=== PATIENT | male | born 1940 | race Caucasian/White ===

== ENCOUNTER 2022-12-01 10:56 | Emergency (ER) | payer MEDICARE, SELFPAY ==
[2022-12-01 11:00] VITALS: BP 155/87; PULSE 87; TEMP 36.9; O2SAT 94; BMI 27.0
[2022-12-01] MEDS: sodium chloride 0.9% 1,000 ML 999 ML IV (11:15)
[2022-12-01] MEDS: ondansetron 2 mg/ML SDV 2 mL 4 MG IVP (11:16)
--- NOTE | 2022-12-01 11:29 | CT_ITS ---
WS: [id number] CT ABDOMEN PELVIS TECHNIQUE: Noncontrast CT of the abdomen and pelvis with coronal and sagittal reformatted images. CLINICAL INFORMATION: Abdominal pain COMPARISON: None. DLP: 551.[address] scans at [facility] use at least one of these dose optimization techniques: automated e xposure control; mA and/or kV adjustment per patient size (includes targeted exams where dose is matc hed to clinical indication); or iterative reconstruction. FINDINGS: Comminuted fracture involving the L1 vertebral body with mild retropulsion of the posterior cortex re sults mild central canal stenosis with effacement of the ventral thecal sac. Diffuse mottled sclerosi s throughout the L1 vertebral body and posterior elements nonspecific but suspicious for pathologic f racture. This is age indeterminant but only a small amount of surrounding edema. Bony structures coul d be further evaluated with bone scan to assess for metastatic disease. 40% loss of vertebral body he ight. Midline fracture cleft with comminution of the superior and inferior endplates. Lung bases are well aerated. Noncontrast liver appears normal. Normal noncontrast spleen. Small peric ardial effusion. Normal GE junction. Noncontrast pancreas appears normal. Adrenal glands are normal. No hydronephrosis in either kidney. A few peripelvic LEFT renal cysts. No significant perinephric flu id or edema. Nonobstructing RIGHT renal calyceal tip calculus. A few sigmoid diverticuli. No evidence of acute diverticulitis. Normal appendix in the RIGHT lower qu adrant. Tiny fat-containing umbilical hernia. Enlarged prostate measuring 4.2 cm with calcifications. No diffuse bladder wall thickening. Recommend correlation PSA. IMPRESSION: 1. Comminuted burst type fracture involving the L1 vertebral body with transverse fracture cleft. L oss of approximately 40% vertebral body height with mild retropulsion and mild central canal stenosis . Abnormal sclerotic bone trabeculation suspicious for pathologic fracture. Bony structures can be fu rther evaluated with bone scan to assess for metastatic disease. Fracture is age-indeterminate 2. No hydronephrosis in either kidney. Nonobstructing RIGHT calyceal tip calculus. 3. Mild prostate enlargement with calcification. Correlation PSA. Evidence of mild bladder outlet ob struction 4. Sigmoid diverticulosis. No evidence of acute diverticulitis. 5. Small pericardial effusion.
[2022-12-01 11:36] LABS: Basophils % 0.8 %; Hematocrit 42.8 % (37-53); Lymphocytes # 0.8 10^3/uL (0.8-4.8); Lymphocytes % 32.3 %; Mean Corpuscular HGB Conc 34.6 g/dL (30-55); Mean Corpuscular Hemoglobin 31.4 pg (27-33); Mean Corpuscular Volume 90.7 fl (82-101); Mean Platelet Volume 11.8 fL (7.4-10.4); Monocytes # 0.2 10^3/uL (0.2-0.9); Monocytes % 8.7 %; Neutrophils # 1.44 10^3/uL (1.8-7.7); Neutrophils % 56.6 %; Nucleated Red Blood Cells % 0 %; Platelet Count 36 10^3/cmm (157-399); Red Blood Count 4.72 10^6/uL (3.85-5.65); Red Cell Distribution Width 13.6 % (12.1-15.1); White Blood Count 2.54 10^3/uL (3.29-11.43)
[2022-12-01 11:41] VITALS: BP 155/87; PULSE 75; RESP 16; O2SAT 93
--- NOTE | 2022-12-01 11:55 | ED_ITS ---
HPI - Weakness General: Chief complaint: Weakness Stated complaint: uti, fever Time Seen by Provider: 12/01/22 11:04 Source: patient Mode of arrival: EMS History of Present Illness: 22-year-old male presents emergency room after a fall at home he is some bruising over his left flank. Is been increasingly weak falling often he has chronic hearing loss which makes it difficult for him to communicate. Denies any pain in the hips. Is been progressively worsening over the last few weeks he is not on any anticoagulants he recently was diagnosed with an otitis media and's was given a shot Of antibiotic (likely ceftriaxone) and then started on Bactrim. MD Complaint: generalized weakness Onset (ago): week(s) Duration: constant and progressively worsening Relieving factors: none Exacerbating factors: none Associated symptoms: Denies chest pain, chills, confusion, melena, decreased appetite, diaphoresis, dysuria, easy bruising, fever(s), headache(s), myalgias, nausea, rash, short of breath, syncope or vomiting Review of Systems Const: Denies: fever(s), chills or diaphoresis ENMT: Denies: throat pain, ear or mastoid pain, nasal discharge or nasal congestion Card: Denies: chest pain or syncope Resp: Denies: dyspnea, productive cough or non-productive cough GI: Denies: nausea, vomiting or melena : Denies: dysuria Skin/Breast: Denies: rash or pruritus Neuro: Denies: headache(s) or confusion Abhilash/Lymph: Denies: easy bruising Physical Exam Const: COMMON NORMALS: no acute distress GENERAL APPEARANCE: cooperative and comfortable ORIENTATION/CONSCIOUSNESS: Yes awake and Yes oriented to place; not oriented to person and not oriented to time HENMT: COMMON NORMALS: normocephalic and atraumatic; hearing grossly not normal bilaterally HEAD & SCALP: normocephalic and atraumatic Resp: COMMON NORMALS: normal respiratory effort, No retractions, No use of accessory muscles and clear to auscultation bilaterally AUSCULTATION: clear to auscultation bilaterally Cardio: COMMON NORMALS: regular rate, regular rhythm and No murmurs present (Cardio) RATE: regular rate RHYTHM: regular rhythm GI: COMMON NORMALS: Soft to palpation and No hepatosplenomegaly present AUSCULTATION: Yes normoactive bowel sounds PALPATION: Yes Soft to palpation, No Tenderness to palpation present (GI), No Guarding due to palpation present (GI) and Yes No hepatosplenomegaly present Extremity: COMMON NORMALS: normal to inspection, capillary refill normal, no clubbing, cyanosis or edema, no calf tenderness and no pedal edema Neuro: SENSORIUM/ORIENTATION: No oriented to person, Yes oriented to place and No oriented to time Skin: COMMON NORMALS: no rashes or lesions noted GENERAL SKIN EXAM: no rashes or lesions noted Course Vital Signs: Vital signs: Vital Signs Temperature 98.4 F 12/01/22 11:00 Pulse Rate 75 12/01/22 15:14 Respiratory Rate 16 12/01/22 15:14 Blood Pressure 155/87 12/01/22 15:14 Pulse Oximetry 93 12/01/22 15:14 Oxygen Delivery Me thod Room Air 12/01/22 11:41 MDM - Weakness Medical Decision Making L1 compression fracture acute VTE is a little difficult determine on the CT. He does have some ecchymosis over his left left posterior superior iliac crest. He has pretty significant thrombocytopenia also has transaminitis hyponatremia. His daughter admits he does drink relatively heavily I think it may be related to that. Also of concern is the L1 compression fracture there is a question on the imaging whether or not it is pathologic reviewed all this with the daughter who is at the bedside. Patient would like to go home at this point he can go home but he definitely needs further work-up for all of these issues particularly the potential for being a pathologic fracture with the daughter the other abnormal labs including elevation in transaminases hyponatremia and thrombocytopenia may be related to drinking or may be related to what ever caused a fracture in his back and he will need further evaluation of this we did give him hydrocodone to use at night for pain discharge home avoid any aspirin if has any worsening or change problems recheck to the nearest emergency room. Both daughter and the patient are from out of town patient is from [facility] they are planning to head back there encouraged him to establish with a doctor and have further work-up done Medical Records I reviewed the patient's medical records. Lab Data I reviewed the patient's lab results. 12/01/22 11:25 12/01/22 11:25 Laboratory Results WBC 2.54 10^3/uL (3.29-11.43) L 12/01/22 11:25 RBC 4.72 10^6/uL (3.85-5.65) 12/01/22 11:25 Hgb 14.80 g/dL (11.27-16.99) 12/01/22 11:25 Hct 42.8 % (37-53) 12/01/22 11:25 MCV 90.7 fl (82-101) 12/01/22 11:25 MCH 31.4 pg (27-33) 12/01/22 11:25 MCHC 34.6 g/dL (30-55) 12/01/22 11:25 RDW 13.6 % (12.1-15.1) 12/01/22 11:25 Plt Count 36 10^3/cmm (157-399) L 12/01/22 11:25 MPV 11.8 fL (7.4-10.4) H 12/01/22 11:25 Neut % (Auto) 56.6 % 12/01/22 11:25 Lymph % (Auto) 32.3 % 12/01/22 11:25 [place] % (Auto) 8.7 % 12/01/22 11:25 Eos % (Auto) 0.0 % 12/01/22 11:25 Baso % (Auto) 0.8 % 12/01/22 11:25 Neut # (Auto) 1.44 10^3/uL (1.8-7.7) L 12/01/22 11:25 Lymph # (Auto) 0.8 10^3/uL (0.8-4.8) 12/01/22 11:25 [place] # (Auto) 0.2 10^3/uL (0.2-0.9) 12/01/22 11:25 Eos # (Auto) 0.0 10^3/uL (0.0-0.8) 12/01/22 11:25 Baso # (Auto) 0.0 10^3/uL (0.0-0.1) 12/01/22 11:25 Nucleated RBC % (auto) 0 % 12/01/22 11:25 Nucleated RBCs # 0.0 /100WBC 12/01/22 11:25 Sodium 126 mmol/L (136-145) L 12/01/22 11:25 Potassium 4.4 mmol/L (3.5-5.1) 12/01/22 11:25 Chloride 95 mmol/L (98-107) L 12/01/22 11:25 Carbon Dioxide 19 mmol/L (22-29) L 12/01/22 11:25 Anion Gap 16.4 (5-19) 12/01/22 11:25 BUN 20 mg/dL (8-23) 12/01/22 11:25 Creatinine 1.0 mg/dL (0.7-1.2) 12/01/22 11:25 GFR Calculation Not Reportable 12/01/22 11:25 Glucose 111 mg/dL (65-115) 12/01/22 11:25 Calculated Osmolality 265 mOsm/kg (285-295) L 12/01/22 11:25 Calcium 8.4 mg/dL (8.5-10.5) L 12/01/22 11:25 Total Bilirubin 0.8 mg/dL (0.15-1.2) 12/01/22 11:25 AST 224 U/L (0-40) H 12/01/22 11:25 ALT 137 U/L (0-41) H 12/01/22 11:25 Alkaline Phosphatase 87 U/L (40-130) 12/01/22 11:25 Total Protein 5.7 g/dL (6.6-8.7) L 12/01/22 11:25 Albumin 3.2 g/dL (3.5-5.2) L 12/01/22 11:25 Globulin 2.5 g/dL (1.3-4.6) 12/01/22 11:25 Urine Color Yellow (Yellow) 12/01/22 11:00 Urine Appearance Hazy (CLEAR) A 12/01/22 11:00 Urine pH 5 (5-7) 12/01/22 11:00 Ur Specific [place] 1.020 (1.005-1.030) 12/01/22 11:00 Urine Protein 1+ (Negative) H 12/01/22 11:00 Urine Glucose (UA) Norm (Normal) 12/01/22 11:00 Urine Ketones 1+ (Negative) H 12/01/22 11:00 Urine Blood 2+ (Negative) H 12/01/22 11:00 Urine Nitrate Negative (Negative) 12/01/22 11:00 Urine Bilirubin Neg (Negative) 12/01/22 11:00 Urine Urobilinogen Norm mg/dL (Negative) 12/01/22 11:00 Ur Leukocyte Esterase Trace (Negative) H 12/01/22 11:00 Urine RBC 0-4 /hpf (0-2) H 12/01/22 11:00 Urine WBC 0-4 /hpf (0-5) H 12/01/22 11:00 Ur Squamous Epith Cells 0-4 /hpf (0-5) H 12/01/22 11:00 Amorphous Sediment 1+ /hpf 12/01/22 11:00 Urine Bacteria Trace /hpf (NONE) 12/01/22 11:00 Urine Mucus 1+ /hpf 12/01/22 11:00 Urine Sperm 1+ /hpf 12/01/22 11:00 All radiology interpretation(s) finalized by discharge Discharge Plan Discharge Patient Disposition: Home Clinical Impression: Compression fracture of lumbar vertebra, Hyponatremia, Thrombocytopenia, Abnormal transaminases Condition: Stable Prescriptions: New hydrocodone-acetaminophen 5-325 mg tablet 1 tab PO Q6H PRN (Reason: pain) Qty: 14 0RF No Action cephalexin 500 mg capsule 500 mg PO QID Discharge Orders: Discharge ED (Routine); Ordered 12/01/22 Ordered By: Jose Juan Ch Discharge Diet: Usual diet Discharge Activity: Limit activity as instructed Patient Instructions: Vertebral Compression Fracture (ED), Opioid Safety, Pain Management Coding Level of Care Code ED [employer] Operator for Yaneth Casey
[2022-12-01 12:01] LABS: Alanine Aminotransferase 137 U/L (0-41); Albumin Level 3.2 g/dL (3.5-5.2); Alkaline Phosphatase 87 U/L (40-130); Anion Gap 16.4 (5-19); Aspartate Amino Transferase 224 U/L (0-40); Blood Urea Nitrogen 20 mg/dL (8-23); Calcium 8.4 mg/dL (8.5-10.5); Carbon Dioxide 19 mmol/L (22-29); Chloride 95 mmol/L (98-107); Creatinine Clr Calc Pharmacy 55.6835; Globulin 2.5 g/dL (1.3-4.6); Glucose 111 mg/dL (65-115); Osmolality Calculated 265 mOsm/kg (285-295); Potassium 4.4 mmol/L (3.5-5.1); Sodium 126 mmol/L (136-145); Total Bilirubin 0.8 mg/dL (0.15-1.2); Total Protein 5.7 g/dL (6.6-8.7)
[2022-12-01 12:09] LABS: Slide Review Slide Review Perform
[2022-12-01] MEDS: acetaminophen 500 mg Tablet 1000 MG PO (12:37)
[2022-12-01 12:50] LABS: Glucose Urine UA Norm (Normal); Protein Urine 1+ (Negative); Urine Appearance Hazy (CLEAR); Urine Color Yellow (Yellow); pH Urine 5 (5-7)
[2022-12-01 12:51] LABS: Add Urine Culture? No; Add Urine Microscopic? YES; Amorphous Sediment Urine 1+ /hpf; Bacteria Urine TRACE /hpf; Bilirubin Urine Neg (Negative); Blood Urine 2+ (Negative); Ketones Urine 1+ (Negative); Leukocyte Esterase Urine Trace (Negative); Mucus Urine 1+ /hpf; Nitrate Urine Negative (Negative); RBC Urine 0-4 /hpf (0-2); Sperm Urine 1+ /hpf; Squamous Epithelial Cell Urine 0-4 /hpf (0-5); Urobilinogen Urine Norm (Negative); WBC Urine 0-4 /hpf (0-5)
[2022-12-01 15:14] VITALS: BP 155/87; PULSE 75; RESP 16; O2SAT 93
== END 2022-12-01 15:16 | disposition home or self-care (01) ==
PROVIDERS: Emergency Provider Family Medicine
DX: S32.011A Stable burst fracture of first lumbar vertebra, initial encounter for closed fracture (principal); E87.1 Hypo-osmolality and hyponatremia; D69.6 Thrombocytopenia, unspecified; R74.01 Elevation of levels of liver transaminase levels; W19.XXXA Unspecified fall, initial encounter
CPT/HCPCS: 36415; 74176; 80053; 81001; 85025; 87040; 96361; 96374; 99285; J2405; J7030